=== PATIENT | male | born 1955 | race Caucasian/White ===

== ENCOUNTER 2025-01-12 08:04 | Day surgery (SDC) | payer OTHER, SELFPAY ==
--- OUTSIDE RECORDS SUMMARY | 2024-11-18 13:13 | XMS_ITS | Clinical Summary ---
Author Organization [facility] Address [address] [facility] [address] [place] [id number] Phone Care Team Providers Care Ice Seller Name Role Phone Unavailable Primary Care Provider Unavailabl e Social History Tobacco Use Types Packs/Day Years Used Date Smoking Tobacco: Never Assessed Sex and Gender Information Value Date Recorded Sex Assigned at Not on file Legal Sex Male 11:10 AM EST Gender Identity Not on file Sexual Orientation Not on file Plan of Treatment Not on file Medical Devices Not on file Additional Source Comments The information contained in this document represents components of the legal health record. It is not the complete legal health record.[facility]
--- OUTSIDE RECORDS SUMMARY | 2024-11-18 13:13 | XMS_ITS | Patient Health Record ---
Author Organization [facility] Address [address] [place] [address] Care Team Providers Care Project Development Engineer Name Role Phone Helena Foss Primary Care Provider Antwan Michael Unavailable [phone] Allergies No Known Allergies Reason For Referral Referring Provider First Name Helena Referring Provider Last Name Pipo Referring Provider Speciality Internal M edicine Referred Organization [facility] Referred Provider Antwan Cook Referred Address [address] [place] [address],[address],[place], [place],[address], Referred Provider Specialty Gastroentero logy Referral Priority Routine Medications Medication SIG (Take, Route, Frequency, Duration) Notes Start Date End Date Status Fluocinolone Acetonide 0.01 % 1 application Externally Twice a day Active Gabapentin 300 MG 1 capsule Orally thr ee a day Active Gemfibrozil 600 MG 1 tablet 30 minutes before morning and evening meals Orally Twice a day for 30 day(s) Active Lisinopril-hydroCHLOROthiaz keily 10-12.5 MG 1 tablet Orally Once a day for 30 day(s) Active Ketoconazole 2 % 1 application Director Center ally Once a day Active Lfxikoyoqte-Hivsgjexs-Mzwcx cAc Active busPIRone HCl 5 MG 1 tablet Orally Twic e a day Active Aspirin 81 81 MG 1 tablet Orally Once a day for 30 day(s) Active Baclofen 10 MG 1 tablet with food o r milk Orally Three times a day Active Dicyclomine HCl 20 MG 1 tablet Orally Fo ur times a day/prn Active buPROPion HCl 150 1 tablet Orally in am Active Omeprazole 20 MG 1 capsule 1/2 to 1 h our before morning meal Orally Once a day for 30 days 10/05/2024 Active Sertraline HCl 100 MG 2 tablet Orally On ce a day Active MiraLax (colon prep) 17 GM/SCOOP 1 238Gm bottle mixed with Gatorade or Crystal Light orally begin at 5:00 p.m. the day before the procedure for 1 days 10/14/2024 Active traZODone HCl 100 MG 1 tablet at bedtime Orally Once a day Active Nicotine 7 MG/24HR 1 patch to skin Transdermal Once a day Active Ibuprofen 400 MG 1 tablet with food o r milk as needed Orally Three times a day Active Dulcolax (colon prep) 5 MG take 2 at 3:0 0 p.m and 7:00p.m. the day before the colonoscopy Orally two tablets twice a day for one day for 1 days 10/14/2024 Active Hydralazine-HCTZ Act ирина Magnesium Oxide 420 MG 1 tablet as neede d Orally twice a day Active metroNIDAZOLE 0.75 % 1 application Exter toni Twice a day Active Multivitamin & Mineral - as directed Ora lly once a day Active Omeprazole 20 MG 1 capsule 30 minutes before morning meal Orally twice a day Active Prazosin HCl 5 MG 1 capsule at bedtime Orally Once a day for 30 day(s) Active Vortioxetine HBr 20 MG 1 tablet Orally O nce a day Active Immunizations Vaccine Route Administration Date Status Comme nts Influenza Unknown 01/19/2019 Administered Influenza Unknown 12/30/2023 Administered Social History Tobacco Use: Social History Observation Description Date Details (start date - stop date) Former Smoker NA - NA Alcohol Screen Question Answer Notes Did you have a drink containing alcohol in the p ast year? No Points 0 Interpretation Negative Tobacco Control (Standard) Question Answer Notes Tobacco use: Former smoker Section Notes: Smoker; Alcohol abuse--sober since 2009 Nonsmoker since 02/2024; Alc ohol abuse- sober since 2009 Problems Problem Type SNOMED Code ICD Code Onset Dates Problem Status W/U Status Risk Notes Problem 172367950 Encounter for screening for malignant neoplasm of colon (Z12.11) Active confirmed Problem 487399297 Gastroesophageal reflux disease, esophagitis presence not specified (K21.9) Active confirmed Problem History of adenomatous polyp of colon (790456644) History of adenomatous polyp of colon (Z86.0101) Active confirmed Vital Signs Temperature 98.9 degrees Fahrenheit 10/05/2024 Blood pressure diastolic 01 mm Hg 10/05/2024 Height 69 in 10/05/2024 Blood pressure systolic 001 mm Hg 10/05/2024 Weight 219.4 lbs 10/05/2024 BMI 32.4 kg/m2 10/05/2024 Procedures Procedure Date Ordered Date Performed Result Body Sit e COLONOSCOPY 10/05/2024 N/A Encounters Encounter Location Date Provider Diagnosis [facility] [address] [place] [address] 10/05/2024 Antwan Cook Gastroesophageal ref lux disease, esophagitis presence not specified K21.9 ; Encounter for screening for malignant neoplasm of colon Z12.11 and History of adenomatous polyp of colon Z86.0101 [facility] [address] [place] [address] 10/05/2024 Antwan Cook Assessments Encounter Date Diagnosis (ICD Code) Assessment Notes Treatment Notes Treatment Clinical Notes Section Notes 10/05/2024 Encounter for screening for malignant neoplasm of colon (ICD-10 - Z12.11) Overall, Paras appears well. He is not having any new or worrisome GI complaints. We did review his previous upper endoscopy findings. Given his ongoing symptoms of reflux I shall give him a new prescription for omeprazole 20 mg daily. We did review that watching his diet, eating healthy, minimizing caffeine, and eating smaller meals would help with the reflux as well. I do not think a repeat endoscopy is required given the otherwise negative exam in 2019. I did recommend a follow-up colonoscopy for further screening given the history of tubular adenomas removed over 5 years ago. We did review the rationale for this in regard to colon cancer prevention. Full consent has been obtained for this, including risks of bleeding and perforation. The procedure will be done with monitored anesthesia care. He was given the below instructions regarding adjustment of his medications for the procedure. Paras was comfortable with this plan. Thank you again for allowing me to participate in Paras's care. I shall continue to keep you advised of his progress. 10/05/2024 Gastroesophageal reflux disease, esophagitis presence not specified (ICD-10 - K21.9) Overall, Paras appears well. He is not having any new or worrisome GI complaints. We did review his previous upper endoscopy findings. Given his ongoing symptoms of reflux I shall give him a new prescription for omeprazole 20 mg daily. We did review that watching his diet, eating healthy, minimizing caffeine, and eating smaller meals would help with the reflux as well. I do not think a repeat endoscopy is required given the otherwise negative exam in 2019. I did recommend a follow-up colonoscopy for further screening given the history of tubular adenomas removed over 5 years ago. We did review the rationale for this in regard to colon cancer prevention. Full consent has been obtained for this, including risks of bleeding and perforation. The procedure will be done with monitored anesthesia care. He was given the below instructions regarding adjustment of his medications for the procedure. Paras was comfortable with this plan. Thank you again for allowing me to participate in Paras's care. I shall continue to keep you advised of his progress. 10/05/2024 History of adenomatous polyp of colon (ICD-10 - Z86.0101) Overall, Paras appears well. He is not having any new or worrisome GI complaints. We did review his previous upper endoscopy findings. Given his ongoing symptoms of reflux I shall give him a new prescription for omeprazole 20 mg daily. We did review that watching his diet, eating healthy, minimizing caffeine, and eating smaller meals would help with the reflux as well. I do not think a repeat endoscopy is required given the otherwise negative exam in 2019. I did recommend a follow-up colonoscopy for further screening given the history of tubular adenomas removed over 5 years ago. We did review the rationale for this in regard to colon cancer prevention. Full consent has been obtained for this, including risks of bleeding and perforation. The procedure will be done with monitored anesthesia care. He was given the below instructions regarding adjustment of his medications for the procedure. Paras was comfortable with this plan. Thank you again for allowing me to participate in Paras's care. I shall continue to keep you advised of his progress. Plan Of Treatment Pending Test Test Name Order Date COLONOSCOPY 10/05/2024 Future Test Test Name Order Date UPPER GI ENDOSCOPY 01/19/2019 COLONOSCOPY 01/19/2019 Next Appt Details Provider Name:Antwan Rene Joyce , 01/12/2025 09:40:00 AM, [address] [place] [address] , [place], [place], [id number], Insurance Providers Payer Name Payer Address Payer Phone Subscriber Number Group Number Insured Name Patient Relationship to Insured Coverage Start Date Coverage End Date [facility] [employer] [address] [place] [address] [id number] PARAS RIVERO Self - patient is the insured Medical (General) History Medical History History ICD Code Hypertension GERD- -he describes a histor [facility] but is not sure about the results- EGD 03/2019 with a small HH, mild gastritis, and biopsies neg. for H.pylori PTSD Hyperlipidemia Anxiety/depression Denies [facility],DM,CVA,Lung disease,renal dise ase Neg. screening colonoscopy in 02/[address] [facility] [address] Abraham TIA Colonoscopy 03/2019 with small tubular ad enomas removed Surgical History Surgery Date(Month/Year) Perianal rectal fistula in 1995 and 1996 - Dr Abraham
--- OUTSIDE RECORDS SUMMARY | 2024-11-18 13:13 | XMS_ITS | Encounter Summary ---
Author Organization [facility] Address [address] [place] [address] Phone Care Team Providers Care Cook Supervisor Name Role Phone Unavailable Primary Care Provider Unavailabl e Encounter Details Date Type Department Care Team (Latest Contact Info) Description 04/05/2022 Transcribe Orders Virtual Department [address] [place] [address] Agnieszka Partida, DO [address] [place] [address] [email or web address] Other form of dyspnea Social History Tobacco Use Types Packs/Day Years Used Date Smoking Tobacco: Never Assessed Sex and Gender Information Value Date Recorded Sex Assigned at Not on file Legal Sex Male 11:10 AM EST Gender Identity Not on file Sexual Orientation Not on file documented as of this encounter Plan of Treatment Not on file documented as of this encounter Visit Diagnoses Diagnosis Other form of dyspnea documented in this encounter Additional Source Comments The information contained in this document represents components of the legal health record. It is not the complete legal health record.[facility]
[2025-01-10 13:42] VITALS: BMI 32.4
--- NOTE | 2025-01-11 08:22 | HO.ANESPROP2 ---
Documented by User: Leida Sadler NP 01/11/25 08:23 HPI - Anesthesia Eval Consult details Narrative: 69 yr old male for colonoscopy Last colon was in 2019 H/O ETOH abuse in remission H/O TIA PMFSH Past Medical History Medical History Alcohol dependence in remission TIA (transient ischemic attack) Hyperlipidemia Anxiety Depression PTSD (post-traumatic stress disorder) GERD (gastroesophageal reflux disease) HTN (hypertension) Surgical History Surgical History History of esophagogastroduodenoscopy (EGD) History of rectal surgery H/O colonoscopy Social History Social History (Updated 01/10/25 @ 13:44 by Lissy Bennett RN) Patient Tobacco Use Status: Former Tobacco user Tobacco use type: Cigarette Use of substances other than those prescribed or required for medical reasons: No Are you DNR?: No Advance Directives: No Advance Directives Information Provided: Yes Meds Allergies Allergy/AdvReac Type Severity Reaction Status Date / Time No Known Allergies Allergy Unknown NOT Verified 01/12/25 08:32 APPLICABLE Home Medications ?Medication ?Instructions ?Recorded ?Confirmed ?Last Taken ?Type aspirin 81 mg tablet,delayed 81 mg PO DAILY 01/10/25 01/10/25 01/12/25 History release bupropion HCl 150 mg tablet,12 hr 150 mg PO QAM 01/10/25 01/10/25 01/12/25 History sustained-release buspirone 5 mg tablet 5 mg PO BID 01/10/25 01/10/25 01/12/25 History dicyclomine 20 mg tablet 20 mg PO QID 01/10/25 01/10/25 01/12/25 History gabapentin 300 mg capsule 300 mg PO TID 01/10/25 01/10/25 01/12/25 History gemfibrozil 600 mg tablet 600 mg PO BID 01/10/25 01/10/25 01/12/25 History lisinopril 10 1 tab PO DAILY 01/10/25 01/10/25 01/12/25 History mg-hydrochlorothiazide 12.5 mg tablet magnesium oxide 400 mg PO DAILY 01/10/25 01/10/25 01/12/25 History omeprazole 20 mg delayed 20 mg PO DAILY 01/10/25 01/10/25 01/12/25 History release,disintegrating tablet trazodone 100 mg tablet 100 mg PO BEDTIME 01/10/25 01/10/25 Unknown History vortioxetine 20 mg tablet 20 mg PO DAILY 01/10/25 01/10/25 Unknown History Exam Height,Weight and Vital Signs: Height 5 ft 9 in Weight 99.518 kg Documented by User: Cordell Jovel MD 01/12/25 09:21 [facility] Past Medical History Medical History Alcohol dependence in remission TIA (transient ischemic attack) Hyperlipidemia Anxiety Depression PTSD (post-traumatic stress disorder) GERD (gastroesophageal reflux disease) HTN (hypertension) Family History Family history of problems with anesthesia: No Surgical History Surgical History History of esophagogastroduodenoscopy (EGD) History of rectal surgery H/O colonoscopy History of Problems with Anesthesia: No Social History Social History (Updated 01/10/25 @ 13:44 by Lissy Bennett RN) Patient Tobacco Use Status: Former Tobacco user Tobacco use type: Cigarette Use of substances other than those prescribed or required for medical reasons: No Are you DNR?: No Advance Directives: No Advance Directives Information Provided: Yes Meds Allergies Allergy/AdvReac Type Severity Reaction Status Date / Time No Known Allergies Allergy Unknown NOT Verified 01/12/25 08:32 APPLICABLE Home Medications ?Medication ?Instructions ?Recorded ?Confirmed ?Last Taken ?Type aspirin 81 mg tablet,delayed 81 mg PO DAILY 01/10/25 01/10/25 01/12/25 History release bupropion HCl 150 mg tablet,12 hr 150 mg PO QAM 01/10/25 01/10/25 01/12/25 History sustained-release buspirone 5 mg tablet 5 mg PO BID 01/10/25 01/10/25 01/12/25 History dicyclomine 20 mg tablet 20 mg PO QID 01/10/25 01/10/25 01/12/25 History gabapentin 300 mg capsule 300 mg PO TID 01/10/25 01/10/25 01/12/25 History gemfibrozil 600 mg tablet 600 mg PO BID 01/10/25 01/10/25 01/12/25 History lisinopril 10 1 tab PO DAILY 01/10/25 01/10/25 01/12/25 History mg-hydrochlorothiazide 12.5 mg tablet magnesium oxide 400 mg PO DAILY 01/10/25 01/10/25 01/12/25 History omeprazole 20 mg delayed 20 mg PO DAILY 01/10/25 01/10/25 01/12/25 History release,disintegrating tablet trazodone 100 mg tablet 100 mg PO BEDTIME 01/10/25 01/10/25 Unknown History vortioxetine 20 mg tablet 20 mg PO DAILY 01/10/25 01/10/25 Unknown History Exam Airway Mallampati Class: II TM Dist: <=3cm Neck ROM: Full Denture: Upper Heart: ok Lungs: ok Assessment and Plan Assessment Anesthesia Assessment: Anesthesia Plan Discussed and Chart Reviewed Final Anesthetic Review Family History of Problems with Anesthesia: No History of Problems with Anesthesia: No NPO: Yes ASA Class: III Final Preanesthetic Review: No Changes in Pt Med Stat, Meds/Allgs Chart Reviewed, Consent Obtained/Reviewed and Anes Risks/Benef Reviewed Patient Risk: Intermediate Procedure Risk: Low Anesthetic Plan Anesthetic Plan: MAC: and Agree w/ Assess. and Plan Disposition: Standard PACU
[2025-01-12 08:36] VITALS: BMI 31.1
[2025-01-12 08:37] VITALS: BP 140/76; PULSE 70; RESP 15; TEMP 36.6; O2SAT 98
[2025-01-12] MEDS: Lactated Ringers 1,000 ML 100 ML IVCONT (08:52)
[2025-01-12 09:52] VITALS: BP 119/68; PULSE 68; RESP 17; TEMP 36.3; O2SAT 97
--- NOTE | 2025-01-12 09:52 | P.BOP_ITS ---
Brief Operative Note Date of Service: 01/12/25 Pre-op diagnosis: Screening Post-op diagnosis: other (Colon polyp) Procedure: Colonoscopy to the cecum and TI with hot snare polypectomy at 40cm and placement of 1 Resolution clip--specimen not recovered Surgeon: Antwan Cook MD Anesthesia: MAC Was an Source Water Protection Specialist used for this Procedure?: No Estimated blood loss (mL): 0 Pathology: none sent Condition: stable Disposition: PACU
[2025-01-12 10:00] VITALS: BP 114/66; PULSE 68; RESP 17; TEMP 36.3; O2SAT 98
[2025-01-12 10:10] VITALS: BP 138/79; PULSE 64; RESP 17; TEMP 36.3; O2SAT 100
--- NOTE | 2025-01-12 10:38 | OP_ITS ---
DATE OF SERVICE: 01/12/2025 SURGEON: Antwan Cook MD INDICATIONS: The patient presents for evaluation of colorectal cancer screening and personal history of tubular adenoma of the colon. Full consent has been obtained from him for this, including risks of bleeding and perforation. PREOPERATIVE DIAGNOSIS: POSTOPERATIVE DIAGNOSIS: PROCEDURE PERFORMED: ESTIMATED BLOOD LOSS: COMPLICATIONS: ANESTHESIA: Medication used, monitored anesthesia care. ASSISTANTS: SPECIMENS: PREOPERATIVE DIAGNOSES: Colorectal cancer screening and personal history of tubular adenoma of the colon. POSTOPERATIVE DIAGNOSES: Colorectal cancer screening and personal history of tubular adenoma of the colon, colon polyp, diverticulosis, and internal hemorrhoids. PROCEDURES PERFORMED: Colonoscopy to cecum and terminal ileum with hot snare polypectomy and placement of 1 resolution clip. PROCEDURE: The patient was placed in the left lateral decubitus position. The digital rectal exam revealed no abnormalities. The [employer] video pediatric colonoscope was entered into the rectum and advanced easily to the cecum. Once in the cecum, I did identify cecal pouch with appendiceal orifice. The ileocecal valve appeared normal. The terminal ileum was cannulated and appeared normal. Scope was withdrawn back in the colon. After a lot of irrigation and suctioning, the majority of the cecum was well visualized and appeared normal. Small portions were not able to be seen due to some residual stool as well as some food particles. The scope was then slowly withdrawn assessing all mucosal surfaces carefully. Preparation in the proximal ascending colon, descending colon, and sigmoid colon was somewhat limited due to some residual stool and food particles, which were irrigated and suctioned away as best as possible. At 40 cm was an approximately 6 mm grossly adenomatous polyp, which was removed by hot snare polypectomy, but not recovered. A single resolution clip was applied to the polypectomy site, which appeared to be clean and free of any residual polyp tissue. The clip deployed well, and there was no sign of bleeding. I did not visualize any sign of other polyps, colitis, nor angiodysplasia. There was a mild amount of sigmoid diverticulosis. In the rectum, scope was retroflexed visualizing internal hemorrhoids, but no other pathology. The rectal mucosa appeared normal. Scope was straightened and withdrawn from the patient. He tolerated the procedure well and was returned to the recovery area in stable condition. IMPRESSION: 1. Colon polyp. 2. Diverticulosis. 3. Internal hemorrhoids. PLAN: Given his previous history and the somewhat limited prep today, I would recommend a repeat colonoscopy in 3 years rather than 5 years. He was advised to resume his aspirin in 72 hours. He did not stop it as instructed prior to the procedure and took a dose this morning as well. He will see me otherwise on a p.r.n. basis. He was advised not to use any NSAIDs for 1 week. MD TRISTAN Fitch/MARISOL / [id number]
== END 2025-01-12 10:33 | disposition home or self-care (01) ==
PROVIDERS: PCP Internal Medicine; Visit Provider Internal Medicine
PROC: 0DJD8ZZ Inspection of Lower Intestinal Tract, Via Natural or Artificial Opening Endoscopic (ICD-10-PCS; CPT 45378; principal; 2025-01-12 08:30)
DX: Z12.11 Encounter for screening for malignant neoplasm of colon (principal); Z86.0101 Personal history of adenomatous and serrated colon polyps; K63.5 Polyp of colon; K57.30 Diverticulosis of large intestine without perforation or abscess without bleeding
CPT/HCPCS: 45385; J2003; J2704